=== PATIENT | female | born 1995 | race Caucasian/White ===

== ENCOUNTER 2016-11-28 15:07 | Outpatient (CLI) | payer OTHER ==
[2016-11-28 15:29] VITALS: BMI 19.8
== END 2016-11-28 17:15 | disposition home or self-care (01) ==
LOC: FBCOUT 15:07 → FBC 15:09 → FBCOUT 17:15
PROVIDERS: ATTEND Family Medicine
DX: O47.9 False labor, unspecified (principal); Z3A.00 Weeks of gestation of pregnancy not specified
CPT/HCPCS: 59025; 81002; G0463

== ENCOUNTER 2016-11-29 12:42 | Outpatient (CLI) | payer OTHER ==
[2016-11-29 13:05] VITALS: BMI 19.8
== END 2016-11-29 15:57 | disposition home or self-care (01) ==
LOC: FBCOUT 12:42 → FBC 12:42 → FBCOUT 15:57
PROVIDERS: ATTEND Family Medicine
DX: O47.9 False labor, unspecified (principal); Z3A.00 Weeks of gestation of pregnancy not specified
CPT/HCPCS: 59025; 81002; G0463

== ENCOUNTER 2016-11-30 12:11 | Inpatient (IN) | payer OTHER ==
[2016-11-30 12:31] VITALS: BMI 19.8
[2016-11-30] MEDS ORDERED: PUMP TUBING ONE (13:52)
[2016-11-30] MEDS ORDERED: OXYTOCIN 10 UNITS/ML VIAL ONE (13:52)
[2016-11-30] MEDS ORDERED: LIDOCAINE Viscous 2% 15 ML UDCUP ONE (13:52)
[2016-11-30] MEDS ORDERED: MINERAL OIL 25 ML BOT ONE (13:52)
[2016-11-30] MEDS ORDERED: LIDOCAINE 1% (PRES FREE) 30 ML VIAL ONE (13:52)
[2016-11-30] MEDS ORDERED: OXYTOCIN IN LR 0 ML IV ONE (13:53)
[2016-11-30] MEDS ORDERED: MINERAL OIL 25 ML BOT TP ONE (14:00)
[2016-11-30] MEDS ORDERED: LIDOCAINE 1% (PRES FREE) 30 ML VIAL IF ONE (14:26)
[2016-11-30] MEDS ORDERED: HYDROCODONE/ACETAMINOPHEN 5/325MG TABLET PO PRN (14:50)
[2016-11-30] MEDS ORDERED: BENZOCAINE/MENTHOL 60 APPLIC/BOT TP PRN (14:50)
[2016-11-30] MEDS ORDERED: LANOLIN 50 APPLIC/7G TUBE TP PRN (14:50)
[2016-11-30] MEDS ORDERED: DOCUSATE SODIUM 100 MG CAPSULE PO PRN (14:50)
--- NOTE | 2016-11-30 15:38 | PCMAN ---
OB Admission Note - History : 1 Term: 0 : 0 Abortions (S&E): 0 Livin Gestational Age (weeks): 38 Days (#/7): 4 Admit Cervical Dilation:: 10cm Admit Station:: +2 Membrane Status: Intact Rupture (Date): 11/30/16 Rupture (Time): 14:09 Membranes Comment:: light meconium Labor Onset (Date): 11/30/16 Labor Onset (Time): 07:30 Heart Rate:: 140 (VD to 90. LASting 30-60 secs. adequate recovery to BL) Summary of Course:: 21 y/o female @ 38 4/7 wks GA. KELL 12/10/16 by 10 wk U/S. complicated by GBS + status. Presented to L&D w/ c.c of worsening ctxs, since 730 AM. Went from 3cm to complete in 20min. - Labs Blood Type: O (-) negative (antibody screen negative) Rubella Status: Immune GBS Status: Positive Abnormal Labs: None - Physical Exam General: Afebrile Psych/Mental Status: Mood/Affect Appropriate Neurological: Alert - Problems (1) Active labor Status: Acute Code: [id number]/Plan: Admitted to L&D anticipate no time for IPA
--- NOTE | 2016-11-30 15:41 | PCMDEL ---
Delivery Note - Labor 1st stage (hr/min):: 05/17 2nd stage (hr/min):: 3rd stage (hr/min):: Total (hr/min):: - Delivery Delivery (Date): 11/30/16 Delivery (Time): 14:09 Gender: Male Presentation: Cephalic Position: OA Umbilical Cord: 3 Vessel, Nuchal Cord (X1) Delayed Cord Clamping:: > 3 min 1 Minute Total: 8 5 Minute Total: 9 Placenta:: normal appearance EBL:: 300ml Perineum:: 2nd degree ML Suture:: 2-0 vicryl Anesthesia/Meds:: lidocaine Length ROM:: 0 min.
[2016-11-30] MEDS: IBUPROFEN 800 MG TABLET PO PRN ×2 (16:23→22:33)
[2016-12-01 06:56] LABS: HEMATOCRIT 34.2 % (37.0-47.0)
--- NOTE | 2016-12-01 07:54 | PDOC44 ---
- Subjective Day: 1 Reports Flatus, Reports Pain Tolerable, Reports , Reports Lochia Moderate - Objective Temp Pulse Resp BP Pulse Ox 98.1 F 72 14 124/86 12/01/16 07:15 12/01/16 07:15 12/01/16 07:15 12/01/16 07:15 Lab Results 12/01/16 06:20 Hgb 11.0 L Hct 34.2 L Current Medications Generic Name Dose Route Start Last Admin Trade Name Freq PRN Reason Stop Dose Admin Acetaminophen/Hydrocodone Bitart 1 - 2 tab 11/30/16 14:50 [place] 5/325 PO Q4H PRN Pain (Moderate) Benzocaine/Menthol 1 applic 11/30/16 14:50 Dermoplast TP PRN PRN Patient Comfort Docusate Sodium 100 mg 11/30/16 14:50 Colace PO DAILY PRN Comfort Emollient Ointment 1 applic 11/30/16 14:50 [id number] TP PRN PRN sore nipples Ibuprofen 800 mg 11/30/16 14:50 11/30/16 22:33 Motrin PO 800 mg Q6H PRN Administration Pain (Mild) Sodium Chloride 10 ml 11/30/16 14:50 Normal Saline 10ml Flush IV PRN PRN IV Flush - Physical Exam General: Afebrile Psych/Mental Status: Mood/Affect Appropriate, Bonding Well Neurological: Alert HEENT: EOMI Lungs: Clear to Auscultation Bilaterally Cardiovascular: Regular Rate and Rhythm Fundus: Firm, Below Umbilicus - Problems:Assessment/Plan (1) care and examination of lactating mother Status: AcuteAssessment/Plan: normal PP care support BF anticipate D/C tmw Disposition: Stable, Anticipate DC to Home
[2016-12-01] MEDS: IBUPROFEN 800 MG TABLET PO PRN (09:03)
[2016-12-02] MEDS: IBUPROFEN 800 MG TABLET PO PRN (00:59)
[2016-12-02 07:49] VITALS: BP 148/85
--- NOTE | 2016-12-02 10:04 | PDOC39B ---
Hospital Course: ADMIT DATE: 11/30/16 DISCHARGE DATE: 12/02/16 ADMISSION DIAGNOSES: Normal labor GBS positive PROCEDURES: HISTORY OF PRESENT ILLNESS: 21 year old G1 T0 L0 at 38 weeks 4 days presenting with worsening ctxs. See full HPI HOSPITAL COURSE: The patient presented to L&D w/ worsening ctxs. Had precipitous labor of liver born male w/o any complications. See full delivery note for further details. By day of discharge the patient was ambulating, eating, voiding, and passing flatus without difficulty. Pain was controlled and lochia was appropriate. She was with out difficulty. - Physical Exam Vital Signs: Temp Pulse Resp BP Pulse Ox 97.8 F 73 16 148/85 12/02/16 07:46 12/02/16 07:46 12/02/16 07:46 12/02/16 07:46 General: Afebrile Psych/Mental Status: Mood/Affect Appropriate, Bonding Well Neurological: Alert HEENT: EOMI, Mucous membr. moist/pink Lungs: Clear to Auscultation Bilaterally, Normal Air Movement Cardiovascular: Regular Rate and Rhythm Fundus: Firm, Below Umbilicus - Discharge Diagnosis (1) care and examination of lactating mother Status: AcuteAssessment/Plan: normal PP care support BF follow up for 6 wk PP - Discharge Plan Condition: Good Disposition: Home Prescriptions: Ibuprofen [IBUPROFEN 800 MG TABLET (SHF)] 800 mg PO Q6H PRN #30 PRN Reason: Pain (Mild) Follow-Up: Viktoriya uBrnett MD [Staff Physician] - 01/13/17 9:00 am
== END 2016-12-02 15:19 | disposition home or self-care (01) | DRG 775 ==
LOC: FBCOUT 12:11 → FBC 12:12 → FBCOUT 13:53 → FBC 13:53
PROVIDERS: ADMIT Family Medicine; ATTEND Family Medicine
PROC: 10E0XZZ Delivery of Products of Conception, External Approach (ICD-10-PCS; principal; 2016-11-30)
PROC: 0KQM0ZZ Repair Perineum Muscle, Open Approach (ICD-10-PCS; 2016-11-30)
DX: O62.3 Precipitate labor (principal); O99.824 Streptococcus B carrier state complicating childbirth; O69.81X0 Labor and delivery complicated by cord around neck, without compression, not applicable or unspecified; O70.1 Second degree perineal laceration during delivery; Z3A.38 38 weeks gestation of pregnancy; Z37.0 Single live birth

== ENCOUNTER 2016-12-05 10:46 | Outpatient (CLI) | payer OTHER | END 2016-12-05 10:47 | disposition home or self-care (01) | LOC: BABIESSH 10:46 | PROVIDERS: ATTEND Family Medicine | DX: Z39.1 Encounter for care and examination of lactating mother (principal) ==

== ENCOUNTER 2016-12-11 11:40 | Outpatient (CLI) | payer OTHER | END 2016-12-11 11:41 | disposition home or self-care (01) | LOC: BABIESSH 11:40 | PROVIDERS: ATTEND Family Medicine | DX: Z39.1 Encounter for care and examination of lactating mother (principal) ==

== ENCOUNTER 2016-12-18 09:52 | Outpatient (CLI) | payer OTHER | END 2016-12-18 09:53 | disposition home or self-care (01) | LOC: BABIESSH 09:52 | PROVIDERS: ATTEND Family Medicine | DX: Z39.1 Encounter for care and examination of lactating mother (principal) ==